=== PATIENT | female | born 1995 | race Caucasian/White ===

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

== ENCOUNTER 2017-01-30 18:49 | Emergency (ER) | payer OTHER ==
--- NOTE | 2017-01-30 20:47 | RAD ---
INDICATION: Left ankle injury COMPARISON: None TECHNIQUE: AP, lateral, and oblique views were obtained. FINDINGS: The bony structures, joint spaces, and soft tissues are normal for age. IMPRESSION: NEGATIVE EXAMINATION.
--- NOTE | 2017-01-30 20:47 | RAD ---
INDICATION: Left foot injury COMPARISON: None TECHNIQUE: AP, lateral, and oblique views were obtained. FINDINGS: The bony structures, joint spaces, and soft tissues are normal for age. IMPRESSION: NEGATIVE EXAMINATION.
[2017-01-30 20:56] VITALS: BP 134/75
--- NOTE | 2017-02-11 13:51 | UC ---
Lower Extremity/Ankle HPI - HPI Summary HPI Summary: 21 year old female presents with complains of left ankle sprain - History of Current Complaint Chief Complaint: UCLowerExtremity Stated Complaint: LEFT ANKLE INJURY (FALL) Time Seen by Provider: 01/30/17 20:15 Hx Obtained From: Patient Hx Last Menstrual Period: 01/29/17 Onset/Duration: Sudden Onset Severity Initially: Moderate Severity Currently: Moderate Pain Intensity: 8 Pain Scale Used: 0-10 Numeric Aggravating Factor(s): Standing Alleviating Factor(s): Rest Able to Bear Weight: Yes - Allergies/Home Medications Allergies/Adverse Reactions: Allergies Allergy/AdvReac Type Severity Reaction Status Date / Time Cefprozil [From Cefzil] Allergy Mild Rash Verified 01/30/17 20:50 PMH/Surg Hx/FS Hx/Imm Hx Previously Healthy: Yes - Surgical History Surgical History: None - Family History Known Family History: Positive: Hypertension - brother Negative: Cardiac Disease, Diabetes - Social History Alcohol Use: None Substance Use Type: None Smoking Status (MU): Never Smoked Tobacco - Immunization History Most Recent Influenza Vaccination: no Vaccination Up to Date: Yes Review of Systems Constitutional: Negative Skin: Negative Eyes: Negative ENT: Negative Respiratory: Negative Cardiovascular: Negative Gastrointestinal: Negative Genitourinary: Negative Motor: Negative Neurovascular: Negative Musculoskeletal: Other: - left ankle pain/swelling Neurological: Negative Psychological: Negative All Other Systems Reviewed And Are Negative: Yes Physical Exam Triage Information Reviewed: Yes Vital Signs: Initial Vital Signs Temp 36.8 C 01/30/17 20:51 Pulse 75 01/30/17 20:51 Resp 16 01/30/17 20:51 BP 134/75 01/30/17 20:51 Pulse Ox 100 01/30/17 20:51 Vital Signs Reviewed: Yes Eye Exam: Normal ENT Exam: Normal Dental Exam: Normal Neck exam: Normal Neck: Positive: 1 Respiratory Exam: Normal Cardiovascular Exam: Normal Abdominal Exam: Normal Musculoskeletal: Positive: Other: - left ankle sprain/swelling Neurological Exam: Normal Psychological Exam: Normal Skin Exam: Normal Lower Extremity Course/Dx - Course Course Of Treatment: left ankle pain/sprain/swelling - Differential Dx/Diagnosis Provider Diagnoses: left ankle sprain/swelling/pain Discharge - Discharge Plan Condition: Stable Disposition: HOME Prescriptions: Ibuprofen TAB* [Motrin TAB* 800 MG] 800 mg PO Q6H #30 tab Patient Education Materials: Ankle Sprain (ED), Foot Sprain (ED) Referrals: Timothy Hartmann MD [Medical Doctor] - Carrie Smith MD [Primary Care Provider] -
== END 2017-01-30 21:14 | disposition home or self-care (01) ==
LOC: UCCORT 18:49
DX: S93.402A Sprain of unspecified ligament of left ankle, initial encounter (principal); W19.XXXA Unspecified fall, initial encounter; Y93.9 Activity, unspecified; Y92.9 Unspecified place or not applicable; Z88.1 Allergy status to other antibiotic agents
CPT/HCPCS: 99213; G0463

== ENCOUNTER 2017-12-16 17:29 | Emergency (ER) | payer OTHER ==
--- NOTE | 2017-12-16 18:35 | UC ---
Respiratory Complaint HPI - HPI Summary HPI Summary: 22 y/o female presents to the urgent care c/o productive cough w/ yellowish phlegm and mild sore throat for the past 2 weeks. Pt reports she felt mild wheezing last night w/ a lot of cough that is not allowing her to sleep. She has been taking Dayquill PO w/o any improvement. She had mild fever at the beginning of symptoms. Pt denies SOB, chest pain, abdominal pain, N/V/D - History of Current Complaint Stated Complaint: COUGH Time Seen by Provider: 12/16/17 18:34 Hx Obtained From: Patient Hx Last Menstrual Period: 11/29/2017 ?: No Onset/Duration: Gradual Onset, Lasting Weeks - 2 weeks, Still Present, Worse Since - 2 days Timing: Intermittent Episodes Severity Initially: Mild Severity Currently: Moderate Pain Intensity: 2 - sore throat Pain Scale Used: 0-10 Numeric Character: Cough: Productive, Sputum Description: - yellowish Aggravating Factors: Recumbent Position Alleviating Factors: OTC Meds Associated Signs And Symptoms: Positive: Wheezing - mild at night time, URI, Nasal Congestion - Risk Factors Pulmonary Embolism Risk Factors: Negative Cardiac Risk Factors: Negative Pseudomonas Risk Factors: Negative Tuberculosis Risk Factors: Negative - Allergies/Home Medications Allergies/Adverse Reactions: Allergies Allergy/AdvReac Type Severity Reaction Status Date / Time cefprozil Allergy Rash Verified 12/16/17 19:03 PMH/Surg Hx/FS Hx/Imm Hx Previously Healthy: Yes - Pt denies PMHX - Surgical History Surgical History: None - Family History Known Family History: Positive: Hypertension - brother, Diabetes Negative: Cardiac Disease - Social History Occupation: Student Lives: With Family Alcohol Use: None Substance Use Type: None Smoking Status (MU): Never Smoked Tobacco - Immunization History Most Recent Influenza Vaccination: no Vaccination Up to Date: Yes Review of Systems Constitutional: Negative Skin: Negative Eyes: Negative ENT: Sore Throat - mild, Nasal Discharge, Sinus Congestion, Sinus Pain/ Tenderness Respiratory: Cough - productive, Other - mild wheezing at night time Cardiovascular: Negative Gastrointestinal: Negative Genitourinary: Negative Motor: Negative Neurovascular: Negative Musculoskeletal: Negative Neurological: Negative Psychological: Negative Is Patient Immunocompromised?: No All Other Systems Reviewed And Are Negative: Yes Physical Exam - Summary Physical Exam Summary: Vital Signs Reviewed: Yes General: well developed, well nourished female sitting in the examining table w/ o any apparent distress Eyes: Positive: Conjunctiva Clear - PERRLA, EOMI, fundi grossly normal ENT: Positive: Normal ENT inspection, Hearing grossly normal, Pharynx normal, Nasal congestion - edematous and erythematous nasal mucosa, Nasal drainage - yellowish drainage, TMs normal. Negative: Tonsillar swelling, Tonsillar exudate Neck: Positive: Supple, Nontender, No Lymphadenopathy Respiratory: no orthopnea or dyspnea. Able to speak in full sentences, no retractions or accessory muscle use, no tripod position, stridor, or head bobbing. Positive breath sounds bilaterally. diffuse scattered rhonchi on b/L lungs, no wheezes, no crackles or rales. Cardiovascular: Positive: RRR, No Murmur, Pulses Normal, Brisk Capillary Refill Abdomen Description: Positive: Nontender, No Organomegaly, Soft. Negative: CVA Tenderness (R), CVA Tenderness (L) Bowel Sounds: Positive: Present Musculoskeletal Exam: Normal Musculoskeletal: Positive: Strength Intact, ROM Intact, No Edema Neurological Exam: Normal Psychological Exam: Normal Skin Exam: Normal Triage Information Reviewed: Yes Respiratory Course/Dx - Course Course Of Treatment: 22 y/o female presents to the urgent care c/o productive cough w/ yellowish phlegm and mild sore throat for the past 2 weeks. Pt reports she felt mild wheezing last night w/ a lot of cough that is not allowing her to sleep. She has been taking Dayquill PO w/o any improvement. She had mild fever at the beginning of symptoms. Pt denies SOB, chest pain, abdominal pain, N/V/D . Hx obtained. Pt with Acute bronchitis on examination, O2Sat: 100%. Pt Rx Z- susan PO and Albuterol inhaler and Tessalon tabs PO to alleviate bronchospasm. Pt advised to increase fluid intake and eat well. if not improvement or worsening of symptoms to return to the urgent care or f/u with PCP for further management. pt understood and agreed with plan of care. - Differential Dx/Diagnosis Differential Diagnosis/HQI/PQRI: Asthma, Bronchitis, Influenza, Laryngitis, Sinusitis, Other - pneumonia Provider Diagnoses: 1- Acute bronchitis. 2- cough Discharge - Sign-Out/Discharge Documenting (check all that apply): Patient Departure - D/C home All imaging exams completed and their final reports reviewed: No Studies - Discharge Plan Condition: Stable Disposition: HOME Prescriptions: Albuterol HFA INHALER* [Ventolin HFA Inhaler*] 1 - 2 puff INH Q6H PRN #1 mdi PRN Reason: bronchospasm Azithromyxin SUSAN (NF) [Z-Susan (Zithromax) 250 mg tabs #6] 2 tab PO .TODAY, THEN 1 DAILY #6 tab Benzonatate CAP* [Tessalon 100 MG CAP*] 100 mg PO TID #21 cap Patient Education Materials: Acute Bronchitis (ED) Referrals: Carrie Smith MD [Primary Care Provider] - 3 Days Additional Instructions: 1-Please take full course of antibiotic to avoid resistance. 2-Take Tessalon PO tabs as directed and use the albuterol inhaler to alleviate cough. Increase fluid intake, rest and eat well. 3- If symptoms do not improve or worsen or your develop SOB with fever and severe wheezing please go immediately to the ER further evaluation and treatment. 4- F/u with your PCP in 3 days if not improvement of symptoms for further management - Billing Disposition and Condition Condition: STABLE Disposition: Home
[2017-12-16 19:02] VITALS: BP 120/70
== END 2017-12-16 19:48 | disposition home or self-care (01) ==
LOC: UCCORT 17:29
DX: J20.9 Acute bronchitis, unspecified (principal)
CPT/HCPCS: 99212; G0463

== ENCOUNTER 2018-08-11 17:17 | Emergency (ER) | payer OTHER ==
[2018-08-11 18:10] VITALS: BP 114/62
--- NOTE | 2018-08-11 18:23 | UC ---
Throat Pain/Nasal Ellis HPI - HPI Summary HPI Summary: 22-year-old female comes in with a chief complaint of runny nose sinus pressure green rhinorrhea for 7 days. No recent fevers. She did take an over-the- counter medicines which did help with symptoms some. No wheezing. - History of Current Complaint Chief Complaint: UCRespiratory Stated Complaint: COUGH,CONGESTION Time Seen by Provider: 08/11/18 18:17 Hx Last Menstrual Period: 07/11/18 Pain Intensity: 0 - Allergies/Home Medications Allergies/Adverse Reactions: Allergies Allergy/AdvReac Type Severity Reaction Status Date / Time cefprozil Allergy Rash Verified 12/16/17 19:03 seasonal Allergy Runny Nose Uncoded 08/11/18 18:03 Home Medications: Home Medications Ibuprofen TAB* [Motrin TAB* 800 MG] 600 mg PO DAILY PRN 08/11/18 [History Confirmed 08/11/18] Loratadine [Claritin 10 MG CAP] 10 mg PO DAILY 08/11/18 [History Confirmed 08/11] PMH/Surg Hx/FS Hx/Imm Hx Previously Healthy: Yes - Surgical History Surgical History: None - Family History Known Family History: Positive: Hypertension - brother, Diabetes Negative: Cardiac Disease - Social History Alcohol Use: None Substance Use Type: None Smoking Status (MU): Never Smoked Tobacco - Immunization History Most Recent Influenza Vaccination: no Vaccination Up to Date: Yes Review of Systems All Other Systems Reviewed And Are Negative: Yes Constitutional: Positive: Negative Skin: Positive: Negative Eyes: Positive: Negative ENT: Positive: Nasal Discharge, Sinus Congestion, Sinus Pain/Tenderness Respiratory: Positive: Negative Cardiovascular: Positive: Negative Gastrointestinal: Positive: Negative Motor: Positive: Negative Neurovascular: Positive: Negative Musculoskeletal: Positive: Negative Neurological: Positive: Negative Psychological: Positive: Negative Is Patient Immunocompromised?: No Physical Exam Triage Information Reviewed: Yes Appearance: Well-Appearing, No Pain Distress, Well-Nourished Vital Signs: Initial Vital Signs Temp 98.3 F 08/11/18 18:07 Pulse 70 08/11/18 18:07 Resp 20 08/11/18 18:07 BP 114/62 08/11/18 18:07 Pulse Ox 100 08/11/18 18:07 Vital Signs Reviewed: Yes Eye Exam: Normal Eyes: Positive: Conjunctiva Clear ENT: Positive: Pharyngeal erythema, Nasal congestion, Nasal drainage, TMs normal Neck: Positive: Supple Respiratory: Positive: Lungs clear, Normal breath sounds, No respiratory distress Cardiovascular: Positive: RRR Musculoskeletal Exam: Normal Musculoskeletal: Positive: Strength Intact, ROM Intact Neurological Exam: Normal Neurological: Positive: Alert, Muscle Tone Normal Psychological Exam: Normal Psychological: Positive: Age Appropriate Behavior Skin Exam: Normal Throat Pain/Nasal Course/Dx - Course Course Of Treatment: DISCUSSED VIRAL VERSES BACTERIAL INFECTION AND THE ROLE OF ANTIBIOTICS. THE PATIENT PREFERS TO BE ON ANTIBIOTICS AT THIS TIME. - Differential Dx/Diagnosis Provider Diagnosis: Sinusitis Discharge - Sign-Out/Discharge Documenting (check all that apply): Patient Departure All imaging exams completed and their final reports reviewed: No Studies - Discharge Plan Condition: Stable Disposition: HOME Prescriptions: Amoxicillin PO (*) [Amoxicillin 875 MG (*)] 875 mg PO BID #20 tab Patient Education Materials: Sinusitis (ED) Referrals: [facility] [place] [facility]FERR[facility] [Outside] Additional Instructions: FOLLOW UP WITH YOUR DOCTOR IF NOT COMPLETELY IMPROVED. GET RECHECKED SOONER IF YOUR CONDITION WORSENS OR ANY QUESTIONS OR CONCERNS. - Billing Disposition and Condition Condition: STABLE Disposition: Home
== END 2018-08-11 18:30 | disposition home or self-care (01) ==
LOC: UCCORT 17:17
DX: J32.9 Chronic sinusitis, unspecified (principal)
CPT/HCPCS: 99212; G0463

== ENCOUNTER 2019-03-24 08:19 | Emergency (ER) | payer OTHER ==
[2019-03-24 08:42] VITALS: BP 118/70
--- NOTE | 2019-03-24 08:52 | UC ---
Throat Pain/Nasal Ellis HPI - HPI Summary HPI Summary: sore throat x 2 days pain is 8 out 10 , worse with swallowing , better with rest and ibuprofen high fever, 102 + , no cough ,no runny nose - History of Current Complaint Chief Complaint: UCGeneralIllness Stated Complaint: SORE THROAT FEVER ACHY Time Seen by Provider: 03/24/19 08:48 Hx Obtained From: Patient Hx Last Menstrual Period: 03/10/2019 Onset/Duration: Gradual Onset, Lasting Days - 2, Still Present Severity: Moderate Pain Intensity: 8 Cough: None Associated Signs & Symptoms: Positive: Fever. Negative: Hoarseness, Sinus Discomfort, Nasal Discharge, Vomiting, Rash - Allergies/Home Medications Allergies/Adverse Reactions: Allergies Allergy/AdvReac Type Severity Reaction Status Date / Time cefprozil Allergy Rash Verified 03/24/19 08:41 seasonal Allergy Runny Nose Uncoded 03/24/19 08:41 PMH/Surg Hx/FS Hx/Imm Hx Previously Healthy: Yes - Surgical History Surgical History: None - Family History Known Family History: Positive: Hypertension - brother, Diabetes Negative: Cardiac Disease - Social History Alcohol Use: Occasionally Substance Use Type: None Smoking Status (MU): Never Smoked Tobacco - Immunization History Most Recent Influenza Vaccination: no Vaccination Up to Date: Yes Review of Systems All Other Systems Reviewed And Are Negative: Yes Constitutional: Positive: Fever, Chills, Fatigue Skin: Positive: Negative Eyes: Positive: Negative ENT: Positive: Sore Throat. Negative: Ear Ache, Nasal Discharge Respiratory: Negative: Cough Is Patient Immunocompromised?: No Physical Exam Triage Information Reviewed: Yes Appearance: Well-Appearing, No Pain Distress, Well-Nourished Vital Signs: Initial Vital Signs Temp 99.3 F 03/24/19 08:39 Pulse 114 03/24/19 08:39 Resp 15 03/24/19 08:39 BP 118/70 03/24/19 08:39 Pulse Ox 98 03/24/19 08:39 Vital Signs Reviewed: Yes Eye Exam: Normal Eyes: Positive: Conjunctiva Clear ENT: Positive: Normal ENT inspection, Hearing grossly normal, Pharyngeal erythema, TMs normal. Negative: TM bulging, TM dull, TM red Neck: Positive: Supple, Tenderness @, Enlarged Nodes @ Respiratory: Positive: Chest non-tender, Lungs clear, Normal breath sounds Cardiovascular: Positive: Tachycardia Abdominal Exam: Normal Abdomen Description: Positive: Nontender, No Organomegaly, Soft. Negative: CVA Tenderness (R), CVA Tenderness (L), Distended, Guarding Bowel Sounds: Positive: Present Throat Pain/Nasal Course/Dx - Differential Dx/Diagnosis Provider Diagnosis: Viral illness Discharge ED - Sign-Out/Discharge Documenting (check all that apply): Patient Departure All imaging exams completed and their final reports reviewed: No Studies - Discharge Plan Condition: Stable Disposition: HOME Patient Education Materials: Viral Syndrome (ED) Referrals: Carrie Smith MD [Primary Care Provider] - If Needed - Billing Disposition and Condition Condition: STABLE Disposition: Home
== END 2019-03-24 09:13 | disposition home or self-care (01) ==
LOC: UCCORT 08:19
DX: B34.9 Viral infection, unspecified (principal); J02.9 Acute pharyngitis, unspecified; R09.89 Other specified symptoms and signs involving the circulatory and respiratory systems; R68.83 Chills (without fever); R53.83 Other fatigue; R05 Cough; Z88.8 Allergy status to other drugs, medicaments and biological substances; Z91.09 Other allergy status, other than to drugs and biological substances
CPT/HCPCS: 87651; 99211; G0463

== ENCOUNTER 2019-03-25 13:05 | Emergency (ER) | payer OTHER ==
[2019-03-25 14:04] VITALS: BP 128/82
[2019-03-25] MEDS ORDERED: Acetaminophen TAB* 325 MG PO ONE (14:18)
[2019-03-25 14:21] LABS: Influenza B Molecular POSITIVE (Negative)
--- NOTE | 2019-03-25 14:27 | UC ---
FLU HPI - HPI Summary HPI Summary: Pt c/o gradual onset of fever, chills, body aches X 3 days - History of Current Complaint Chief Complaint: UCRespiratory Stated Complaint: NAUSEA WHEEZY CONGESTION Time Seen by Provider: 03/25/19 14:11 Hx Obtained From: Patient Hx Last Menstrual Period: 03/10/2019 ?: No Onset/Duration: Gradual Onset, Lasting Days, Still Present, Worse Since - osnet Severity Currently: Mild Severity Initially: Moderate Pain Intensity: 8 Associated Signs & Symptoms: Positive: Fever, Myalgia, Cough, Sore Throat, Nasal Congestion Related Hx: Possible Flu/Infectious Exposure - Risk Factors Influenza Risk Factors: Negative - Allergy/Home Medications Allergies/Adverse Reactions: Allergies Allergy/AdvReac Type Severity Reaction Status Date / Time cefprozil Allergy Rash Verified 03/25/19 14:01 seasonal Allergy Runny Nose Uncoded 03/25/19 14:01 Home Medications: Home Medications Ibuprofen TAB* [Advil TAB*] 600 - 800 mg PO Q6H PRN 03/25/19 [History Confirmed 03/25/19] PMH/Surg Hx/FS Hx/Imm Hx Previously Healthy: Yes - Surgical History Surgical History: None - Family History Known Family History: Positive: Hypertension - brother, Diabetes Negative: Cardiac Disease - Social History Occupation: Employed Full-time Lives: With Family Alcohol Use: Occasionally Substance Use Type: None Smoking Status (MU): Never Smoked Tobacco Have You Smoked in the Last Year: No - Immunization History Most Recent Influenza Vaccination: no Vaccination Up to Date: Yes Review of Systems All Other Systems Reviewed And Are Negative: Yes Constitutional: Positive: Fever, Chills, Fatigue Skin: Positive: Negative Eyes: Positive: Negative ENT: Positive: Sore Throat Respiratory: Positive: Cough Cardiovascular: Positive: Negative Gastrointestinal: Positive: Negative Genitourinary: Positive: Negative Motor: Positive: Negative Neurovascular: Positive: Negative Musculoskeletal: Positive: Myalgia Neurological: Positive: Negative Psychological: Positive: Negative Is Patient Immunocompromised?: No Physical Exam Triage Information Reviewed: Yes Appearance: Ill-Appearing Vital Signs: Initial Vital Signs Temp 102.8 F 03/25/19 13:58 Pulse 113 03/25/19 13:58 Resp 18 03/25/19 13:58 BP 128/82 03/25/19 13:58 Pulse Ox 98 01/22/20 13:58 Vital Signs Reviewed: Yes Eye Exam: Normal ENT: Positive: Nasal congestion Dental Exam: Normal Neck exam: Normal Respiratory Exam: Normal Cardiovascular Exam: Normal Cardiovascular: Positive: Tachycardia Musculoskeletal Exam: Normal Neurological Exam: Normal Psychological Exam: Normal Skin Exam: Normal Flu Course/Dx - Differential Dx/Diagnosis Differential Diagnosis/HQI/PQRI: Influenza, Upper Respiratory Infection Provider Diagnosis: Influenza B Discharge ED - Sign-Out/Discharge Documenting (check all that apply): Patient Departure All imaging exams completed and their final reports reviewed: No Studies - Discharge Plan Condition: Stable Disposition: HOME Prescriptions: Ondansetron HCl [Zofran] 4 mg PO Q8H PRN #15 tablet PRN Reason: Nausea Oseltamivir CAP* [Tamiflu CAP*] 75 mg PO Q12H #10 cap Patient Education Materials: Influenza (ED) Referrals: Carrie Smith MD [Primary Care Provider] - If Needed - Billing Disposition and Condition Condition: STABLE Disposition: Home
== END 2019-03-25 14:41 | disposition home or self-care (01) ==
LOC: UCCORT 13:05
DX: J10.1 Influenza due to other identified influenza virus with other respiratory manifestations (principal); Z88.1 Allergy status to other antibiotic agents; Z91.09 Other allergy status, other than to drugs and biological substances
CPT/HCPCS: 99212; A9270-GY; G0463

== ENCOUNTER 2019-04-24 18:05 | Emergency (ER) | payer OTHER ==
[2019-04-24 18:43] VITALS: BP 112/68
--- NOTE | 2019-04-24 18:53 | UC ---
Elbow Pain - HPI Summary HPI Summary: 23-year-old female who fell on Saturday morning, 2 days ago onto her right elbow. She complains of pain to the distal humerus and the right elbow. She denies any other injury. She did not hit her head nor does she complain of any neck pain. - History of Current Complaint Chief Complaint: UCUpperExtremity Stated Complaint: S/P FALL, RIGHT ARM INJURY Time Seen by Provider: 04/24/19 18:51 Hx Obtained From: Patient Hx Last Menstrual Period: 03/19/19 ?: No Onset/Duration: Days Severity Initially: Moderate Severity Currently: Moderate - Fell 2 days ago Pain Intensity: 7 Location Of Pain: Is Discrete @ - Right elbow and distal humerus Character: Dull, Aching Aggravating Factor(s): Movement Alleviating Factor(s): Nothing - After the incident happened the patient did continue to work for the day. 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 Associated Signs And Symptoms: Positive: Swelling - Allergies/Home Medications Allergies/Adverse Reactions: Allergies Allergy/AdvReac Type Severity Reaction Status Date / Time cefprozil Allergy Rash Verified 04/24/19 18:36 seasonal Allergy Runny Nose Uncoded 04/24/19 18:36 Home Medications: Home Medications Ibuprofen TAB* [Advil TAB*] 400 mg PO Q6H PRN 03/25/19 [History Confirmed ] PMH/Surg Hx/FS Hx/Imm Hx Previously Healthy: Yes Cardiovascular History: Other - Heart murmur - Surgical History Surgical History: None - Family History Known Family History: Positive: Hypertension - brother, Diabetes Negative: Cardiac Disease - Social History Occupation: Employed Full-time Alcohol Use: Occasionally Substance Use Type: None Smoking Status (MU): Never Smoked Tobacco Have You Smoked in the Last Year: No - Immunization History Most Recent Influenza Vaccination: no Vaccination Up to Date: Yes Review of Systems All Other Systems Reviewed And Are Negative: Yes Motor: Positive: Decreased ROM - Patient has decreased elbow range of motion also because of pain. Musculoskeletal: Positive: Decreased ROM Neurological/Mental Status: Positive: Negative Is Patient Immunocompromised?: No Physical Exam Triage Information Reviewed: Yes Appearance: Well-Appearing, No Pain Distress, Well-Nourished Vital Signs: Initial Vital Signs Temp 98.5 F 04/24/19 18:37 Pulse 64 04/24/19 18:37 Resp 18 04/24/19 18:37 BP 112/68 04/24/19 18:37 Pulse Ox 100 04/24/19 18:37 Vital Signs Reviewed: Yes Musculoskeletal: Positive: Strength Intact, ROM Intact, Other: - Good peripheral pulses, neuro sensation and capillary refill. Pain on palpation to the distal right humerus and the elbow area. Very minimal swelling present. Good hand strength. Normal range of motion but slowly because of pain. Neurological Exam: Normal Psychological Exam: Normal Skin Exam: Normal Elbow Pain Course/Dx - Course Course Of Treatment: Right humerus: Negative as read by myself and Dr. Lindsay Right elbow: Negative as read by myself and Dr. Lindsay An arm sling was applied and the patient will call back in the morning for the results of the x-rays. - Differential Dx/Diagnosis Provider Diagnosis: Contusion of right elbow Discharge ED - Sign-Out/Discharge Documenting (check all that apply): Patient Departure All imaging exams completed and their final reports reviewed: No - Discharge Plan Condition: Good Disposition: HOME Patient Education Materials: Contusion in Adults (ED) Referrals: Carrie Smith MD [Primary Care Provider] - Timothy Hartmann MD [Medical Doctor] - Additional Instructions: May take Tylenol every 4 hours and Motrin every 8 hours for pain. Keep the arm sling on. Please call here tomorrow at [phone] after 11:00 in the morning to find out the results of the x-ray. If there is a possible fracture then you are to keep the arm sling on and follow-up with the orthopedist on Saturday. If you have no improvement in your range of motion or any worsening symptoms you are to follow-up with the orthopedist on Saturday. - Billing Disposition and Condition Condition: GOOD Disposition: Home
--- NOTE | 2019-04-25 11:59 | UC ---
- Progress Note Progress Note: Both images read: elbow and humerus, both negative. Course/Dx - Diagnoses Provider Diagnoses: Contusion of right elbow Discharge ED - Sign-Out/Discharge Documenting (check all that apply): Patient Departure All imaging exams completed and their final reports reviewed: Yes - Discharge Plan Condition: Good Disposition: HOME Patient Education Materials: Contusion in Adults (ED) Referrals: Timothy Hartmann MD [Medical Doctor] - Carrie Smith MD [Primary Care Provider] - Additional Instructions: May take Tylenol every 4 hours and Motrin every 8 hours for pain. Keep the arm sling on. Please call here tomorrow at [phone] after 11:00 in the morning to find out the results of the x-ray. If there is a possible fracture then you are to keep the arm sling on and follow-up with the orthopedist on Saturday. If you have no improvement in your range of motion or any worsening symptoms you are to follow-up with the orthopedist on Saturday. - Billing Disposition and Condition Condition: GOOD Disposition: Home - Attestation Statements Provider Attestation: Per institutional requirements, I have reviewed the chart, however, I was not consulted specifically or made aware of this patient by the midlevel provider. I did not personally evaluate, interact with, or disposition this patient. EK
== END 2019-04-24 19:41 | disposition home or self-care (01) ==
LOC: UCCORT 18:05
DX: S50.01XA Contusion of right elbow, initial encounter (principal); W19.XXXA Unspecified fall, initial encounter; Y92.9 Unspecified place or not applicable; Z91.09 Other allergy status, other than to drugs and biological substances; Z88.1 Allergy status to other antibiotic agents
CPT/HCPCS: 99212; G0463